=== PATIENT | male | born 1990 | race Asian ===

== ENCOUNTER 2017-11-23 21:02 | Emergency (ER) | payer SELFPAY ==
[~2017-11-23] VITALS: Ht 192 cm; Wt 90.9 kg
[2017-11-23 21:07] VITALS: TEMP 98.5
[2017-11-23] MEDS ORDERED: AMOXICILLIN 8751 TAB PO (22:02)
[2017-11-23 22:20] VITALS: BP 144/94; PULSE 101
== END 2017-11-23 22:20 | disposition home or self-care (01) ==
LOC: COL.ER 21:02
DX: K04.7 Periapical abscess without sinus (principal); K02.9 Dental caries, unspecified